=== PATIENT | male | born 1990 | race Caucasian/White ===

== ENCOUNTER 2016-07-25 12:25 | Emergency (ER) | payer BC, OTHER ==
[2016-07-25 12:53] VITALS: BP 142/60; PULSE 75; TEMP 98.1; BMI 21.6
--- NOTE | 2016-07-25 14:02 | PDOC ---
History of Present Illness <Calvin Givens - Last Filed: 07/25/16 15:29> - General History Source: Patient, Old Records Exam Limitations: No Limitations - History of Present Illness Initial Comments: 07/25/16 14:31 The patient is a 26 year old male with no significant past medical history of who presents to the emergency department today with left great toe pain. The patient stated that he was playing basketball last night when he jammed his toe on edge of a hard surface. The patient notes that his pain is exacerbated by movement. The patient denies chest pain, cough, and shortness of breath The patient denies fever, chills, and sweats <Cristino Isaacs - Last Filed: 07/25/16 15:57> - General Chief Complaint: Injury Stated Complaint: LEFT GREAT TOE INJURY Time Seen by Provider: 07/25/16 14:01 Past History - Immunization History Immunization Up to Date: Yes - Psycho/Social/Smoking Cessation Hx Anxiety: No Suicidal Ideation: No Smoking History: Never smoked Hx Alcohol Use: Yes (OCCASIONAL) Drug/Substance Use Hx: No Substance Use Type: None <Calvin Givens - Last Filed: 07/25/16 15:29> <Cristino Isaacs - Last Filed: 07/25/16 15:57> - Past Medical History Allergies/Adverse Reactions: Allergies Allergy/AdvReac Type Severity Reaction Status Date / Time No Known Allergies Allergy Verified 07/25/16 12:44 Home Medications: Ambulatory Orders Ibuprofen 600 mg PO TID #20 tablet 07/25/16 Review of Systems - Review of Systems Comments:: 07/25/16 14:31 CONSTITUTIONAL: No Fever, Chills, Diaphoresis, or Generalized Weakness. MUSCULOSKELETAL: Left great toe pain. No back pain or Neck Pain. <Cristino Isaacs - Last Filed: 07/25/16 15:57> *Physical Exam - Vital Signs Last Vital Signs Temp Pulse Resp BP Pulse Ox 98.1 F 75 14 142/60 100 07/25/16 12:43 07/25/16 12:43 07/25/16 12:43 07/25/16 12:43 07/25/16 12:43 <Calvin Givens - Last Filed: 07/25/16 15:29> - Vital Signs Last Vital Signs Temp Pulse Resp BP Pulse Ox 98.1 F 75 14 142/60 100 07/25/16 12:43 07/25/16 12:43 07/25/16 12:43 07/25/16 12:43 07/25/16 12:43 - Physical Exam Comments: 07/25/16 14:45 GENERAL: [The patient is awake, alert, and fully oriented, in no acute distress. ] HEAD: [Normal with no signs of trauma.] EYES: [Pupils equal, round and reactive to light, extraocular movements intact, sclera anicteric, conjunctiva clear.] EXTREMITIES: Normal range of motion. Ecchymosis of the left great toe with bony tenderness, mild, at the IP joint. There is no deformity. There is no significant swelling. NEUROLOGICAL: [Normal speech, normal gait.] PSYCH: [Normal mood, normal affect.] SKIN: [Warm, Dry, normal turgor, no rashes or lesions noted.] <Crisitno Isaacs - Last Filed: 07/25/16 15:57> ED Treatment Course - RADIOLOGY Radiology Studies Ordered: 07/25/16 14:48 Toe X-ray Impression: There is a linear lucency over the dorsal cortical margin of the distal phalanx of the big toe at its proximal aspect seen on the lateral view raising possibility of incomplete fracture. Recommend clinical correlation for point tenderness. <Cristino Isaacs - Last Filed: 07/25/16 15:57> Medical Decision Making - Medical Decision Making 07/25/16 14:36 Patient presents with a basketball injury sustained last night to his left great toe. Notable findings on examination include ecchymosis of the left great toe with bony tenderness, mild, at the IP joint. There is no deformity. There is no significant swelling. X-rays performed of the left great toe. Reviewed by me and by the radiologist. There is a possible fracture over the dorsal surface of the distal phalanx at the proximal aspect. No displacement. Impression: Possible fracture of the distal phalanx of the left great toe. Plan: Left great toe michael taped to the second toe. Patient advised regarding nonsteroidals, ice, elevation, and adjustment of activities. 07/25/16 15:28 The scribe's documentation has been prepared under my direction and personally reviewed by me in its entirety. I have confirmed that the note above accurately reflects all work, treatment, procedures, and medical decision- making performed by me. <Calvin Givens - Last Filed: 07/25/16 15:29> *DC/Admit/Observation/Transfer - Discharge Dispostion Admit: No <Calvin Givens - Last Filed: 07/25/16 15:29> - Attestations Scribe Attestion: 07/25/16 14:49 Documentation prepared by Cristino Isaacs, acting as medical administrative technician for Calvin Givens MD. <Cristino Isaacs - Last Filed: 07/25/16 15:57> Diagnosis at time of Disposition: Fracture of left great toe Qualifiers: Encounter type: initial encounter Fracture type: closed Phalanx: distal Fracture alignment: nondisplaced Qualified Code(s): S92.425A - Nondisplaced fracture of distal phalanx of left great toe, initial encounter for closed fracture - Discharge Dispostion Disposition: HOME Condition at time of disposition: Good - Prescriptions Prescriptions: Ibuprofen 600 mg PO TID #20 tablet - Referrals Referrals: Toby Newman MD [Staff Physician] - - Patient Instructions Printed Discharge Instructions: DI for Toe Fracture Additional Instructions: You're evaluated today for a left great toe fracture. Michael tape the toes to help support healing. Apply ice packs for 20 minutes every few hours for the first 2 days. Elevate the foot to reduce pain and swelling. Take ibuprofen 3 times a day as needed for pain and inflammation. Avoid sports or other vigorous activities until the pain improves. Follow-up with Dr. Newman, orthopedics, if not better in a week or 2. Return to the emergency department for any severe or progressive symptoms. - Post Discharge Activity Work/School Note: Back to Work
[2016-07-25] MEDS ORDERED: IBUPROFEN 600 MG TABLET (FP) PO ONE ×2 (14:41→14:44)
== END 2016-07-25 14:47 | disposition home or self-care (01) ==
LOC: FER 12:25
PROC: 2W3VXYZ Immobilization of Left Toe using Other Device (ICD-10-PCS; principal; 2016-07-25)
DX: S92.425A Nondisplaced fracture of distal phalanx of left great toe, initial encounter for closed fracture (principal); X58.XXXA Exposure to other specified factors, initial encounter; Y93.67 Activity, basketball; Y92.310 Basketball court as the place of occurrence of the external cause
CPT/HCPCS: 73660-TC; 99282-25

== ENCOUNTER 2017-08-02 15:55 | Emergency (ER) | payer BC, OTHER ==
[2017-08-02 15:59] VITALS: BP 124/70; PULSE 67; TEMP 98; BMI 23.0
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
[2017-08-02] MEDS ORDERED: IBUPROFEN 600 MG TABLET (FP) PO ONE ×2 (17:15→17:21)
== END 2017-08-02 17:24 | disposition home or self-care (01) ==
LOC: FER 15:55
PROC: 2W3GX1Z Immobilization of Right Thumb using Splint (ICD-10-PCS; principal; 2017-08-02)
DX: S62.514A Nondisplaced fracture of proximal phalanx of right thumb, initial encounter for closed fracture (principal); Y35.91XA Legal intervention, means unspecified, law enforcement official injured, initial encounter; Y93.89 Activity, other specified; Y92.9 Unspecified place or not applicable; Y99.0 Civilian activity done for income or pay
CPT/HCPCS: 73130-TC-RT; 99282-25